=== PATIENT | male | born 1995 | race Hispanic/Latino ===

== ENCOUNTER 2018-02-16 16:45 | Emergency (ER) | payer OTHER ==
[2018-02-16] MEDS ORDERED: ISOVUE-370 76% 100ML VIAL (Q9967) As Ordered (17:29)
[2018-02-16] MEDS: ADACEL/BOOSTRIX VACCINE (DIPHTH/PERTUSS/ACELL/TETANUS)0.5ML SYR (90715) IM (17:50)
[2018-02-16] MEDS: KETOROLAC TROMETHAMINE 10 MG TAB PO (17:50)
== END 2018-02-16 18:43 | disposition home or self-care (01) ==
LOC: M ED 16:45
DX: S30.1XXA Contusion of abdominal wall, initial encounter (principal); S60.212A Contusion of left wrist, initial encounter; V48.1XXA Car passenger injured in noncollision transport accident in nontraffic accident, initial encounter; Y92.410 Unspecified street and highway as the place of occurrence of the external cause; W22.10XA Striking against or struck by unspecified automobile airbag, initial encounter; Z91.018 Allergy to other foods
CPT/HCPCS: 90715